=== PATIENT | female | born 1975 | race Caucasian/White ===

== ENCOUNTER → 2016-09-16 | Outpatient (CLI) | payer OTHER ==
[~2016-09-16] MED LIST: ALBU8.5H2 IH; BACL10TA PO; CEPH500C PO; CYCL10TA45 PO; Diazepam PO; FAMO20TA5 PO; FLUO20CA42 PO; ONDA8TAB13 PO; OXYC1TAB12 PO; PRED20TA PO; TRAM50TA2 PO
--- NOTE | 2016-09-16 13:44 | Diagnostic Imaging Report ---
PROCEDURE: US Thyroid. TECHNIQUE: Multiple real-time grayscale images were obtained of the thyroid in various projections. INDICATION: Thyroid enlargement. FINDINGS: The right thyroid lobe is 4.5 x 1.3 x 1.7 cm. The left lobe is 4.1 x 1.3 x 1.8 cm. The thyroid gland is homogeneous with no focal mass. IMPRESSION: Unremarkable exam. Dictated by: Dictated on workstation # [id number]
== END ==
LOC: RAD 13:19
PROVIDERS: ATTEND Nurse Practitioner Family
DX: E01.0 Iodine-deficiency related diffuse (endemic) goiter (principal)
CPT/HCPCS: 76536

== ENCOUNTER → 2017-07-13 | Outpatient (CLI) | payer MEDICAID, OTHER ==
--- NOTE | 2017-07-13 10:23 | Diagnostic Imaging Report ---
INDICATION: Routine screening. COMPARISON: 12/27/2013 and 04/22/2012. TECHNIQUE: Screening digital mammography was performed bilaterally with a Computer Aided Detection (CAD) system. FINDINGS: Both breasts demonstrate moderate parenchymal heterogeneity and increased density, limiting the sensitivity of mammography. The parenchymal pattern is stable. No dominant mass or malignant appearing microcalcifications are seen. The axillae are unremarkable. A benign-appearing nodule in the upper outer right breast is stable. IMPRESSION: No mammographic features suspicious for malignancy are identified. ACR BI-RADS Category 2: Benign findings. Result letter will be mailed to the patient. Note: At least 10% of breast cancer is not imaged by mammography. Dictated by: Dictated on workstation # [id number]
== END ==
LOC: RAD 08:08
PROVIDERS: ATTEND Nurse Practitioner Family
DX: Z12.31 Encounter for screening mammogram for malignant neoplasm of breast (principal)
CPT/HCPCS: 77067

== ENCOUNTER → 2018-10-05 | Outpatient (CLI) | payer MEDICAID ==
--- NOTE | 2018-10-05 10:28 | Diagnostic Imaging Report ---
INDICATION: Screening. TECHNIQUE: The current study was also evaluated with a Computer Aided Detection (CAD) system. 3D Tomographic imaging was also performed. COMPARISON: 07/13/2017, 12/27/2013, and 04/22/2012. FINDINGS: There are scattered fibroglandular densities bilaterally. There is an unchanged well-circumscribed mass in the upper-outer right breast. There is no dominant mass, spiculated lesion, or suspicious calcification identified. The skin, nipples, and axillae are unremarkable. IMPRESSION: Benign findings. ACR BI-RADS Category 2: Benign findings. Result letter will be mailed to the patient. Note: At least 10% of breast cancer is not imaged by mammography. Dictated by: Dictated on workstation # [id number]
== END ==
LOC: RAD 08:36
PROVIDERS: ATTEND Nurse Practitioner
DX: Z12.31 Encounter for screening mammogram for malignant neoplasm of breast (principal)
CPT/HCPCS: 77067

== ENCOUNTER → 2020-04-10 | Outpatient (CLI) | payer MEDICAID, OTHER ==
--- NOTE | 2020-04-10 12:56 | Diagnostic Imaging Report ---
INDICATION: Routine screening. COMPARISON: 10/05/2018 and 07/13/2017. TECHNIQUE: 2D and 3D bilateral screening mammography was performed with CAD. FINDINGS: Both breasts are heterogeneously dense, limiting the sensitivity of mammography. The overall parenchymal pattern appears stable. No spiculated masses or malignant appearing microcalcifications are seen. The axillae are unremarkable. IMPRESSION: No mammographic features suspicious for malignancy are identified. ACR BI-RADS Category 2: Benign findings. Result letter will be mailed to the patient. Note: At least 10% of breast cancer is not imaged by mammography. Dictated by: Dictated on workstation # [id number]
== END ==
LOC: RAD 10:30
PROVIDERS: ATTEND Nurse Practitioner Family
DX: Z12.31 Encounter for screening mammogram for malignant neoplasm of breast (principal)
CPT/HCPCS: 77063; 77067

== ENCOUNTER 2021-09-23 09:49 | Emergency (ER) | payer OTHER ==
[~2021-09-23] VITALS: Ht 160 cm; Wt 113.4 kg
--- NOTE | 2021-09-23 09:55 | ED Chest Pain ---
General Stated Complaint: CHEST PAIN History of Present Illness Date Seen by Provider: Sep 23, 2021 Time Seen by Provider: 09:55 Initial Comments 46-year-old female presents with some generalized Malaise, dizziness, feels hot, some right-sided chest pain. Patient reports that she was just driving to work this morning when it hit. She denies shortness of breath, nausea, vomiting, cough. She reports she just feels like she could pass out. The pain does not radiate. She denies any calf pain. She is currently being treated for high cholesterol otherwise no other medical conditions. Allergies and Home Medications Allergies Coded Allergies: shellfish derived (Unverified Allergy, Severe, SEVERE VOMITING, 07/31/14) PER PT iodine (Unverified Allergy, Intermediate, VOMITING, 07/31/14) PER PT Patient Home Medication List Home Medication List Reviewed: Yes Albuterol (Proair Hfa) 8.5 Gm Hfa.aer.ad, 2 PUFF IH RTQ4HR PRN for SHORTNESS OF BREATH Prescribed by: NIDIA HUNT on 09/06/14 1344 Baclofen (Baclofen) 10 Mg Tablet, 1 EACH PO TID, (Reported) Entered as Reported by: MARY KELLER on 09/06/14 1156 Cephalexin Monohydrate (Cephalexin) 500 Mg Capsule, 1 EACH PO TID Prescribed by: NIDIA HUNT on 09/06/14 1346 Cyclobenzaprine Hcl (Flexeril Tablet) 10 Mg Tablet, 10 MG PO Q8H PRN for SPASMS Prescribed by: NIDIA HUNT on 09/06/14 1346 Famotidine (Pepcid) 20 Mg Tablet, 1 EACH PO BID Prescribed by: NIDIA HUNT on 09/06/14 1344 Fluoxetine Hcl (Prozac) 20 Mg Capsule, 1 EACH PO DAILY, (Reported) Entered as Reported by: ANTONINO CANTU on 07/19/14 1039 Ondansetron (Ondansetron Odt) 8 Mg Tab.rapdis, 8 MG PO Q6H PRN for NAUSEA/VOMITING Prescribed by: NIDIA HUNT on 09/06/14 1344 Oxycodone Hcl/Acetaminophen (Percocet 10/325 (Non-Formulary)) 1 Tab Tablet, 1-2 TAB PO Q6H PRN for PAIN Prescribed by: YOBANI LUNA on 08/07/14 0729 Tramadol Hcl (Tramadol Hcl) 50 Mg Tablet, 50 MG PO PRN PRN for PAIN, (Reported) Entered as Reported by: ANTONINO CANTU on 07/19/14 1039 Tramadol Hcl (Tramadol Hcl) 50 Mg Tablet, 1-2 TAB PO Q4H PRN for PAIN Prescribed by: NIDIA HUNT on 09/06/14 1344 Review of Systems Review of Systems Constitutional: No chills; dizziness; No fever EENTM: No Symptoms Reported; No Blurred Vision, No Nose Pain Respiratory: Denies Cough, Denies Shortness of Air Cardiovascular: Chest Pain (Right chest); Denies Irregular Heart Rate, Denies Palpitations Gastrointestinal: Denies Abdominal Pain, Denies Diarrhea, Denies Nausea, Denies Vomiting Genitourinary: No Symptoms Reported Musculoskeletal: no symptoms reported Skin: no symptoms reported Psychiatric/Neurological: No Symptoms Reported Endocrine: No Symptoms Reported Past Rqbffup-Fmrisn-Wcwbaw Hx Immunizations Up To Date Tetanus Booster (TDap): Less than 5yrs PED Vaccines UTD: Yes Past Medical History Section, Orthopedic, Tubal Ligation TIA Reproductive Disorders: No Scoliosis Depression Eczema, Psoriasis Adverse Reaction/Blood Tranf: No Family Medical History Alcoholism 19 FATHER Drug abuse 19 FATHER FH: cleft palate G8 SISTER FH: scoliosis 19 MOTHER No Pertinent Family Hx Physical Exam Vital Signs Vital Signs - First Documented 09/23/21 09:50 Temp 36.8 Pulse 84 Resp 14 B/P (MAP) 177/75 (109) O2 Delivery Room Air Capillary Refill : Height, Weight, BMI Height: 5'4.00" Weight: 224lbs. 3.0oz. 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 as Tested Skin: Normal Color, Warm/Dry Progress/Results/Core Measures Results/Orders Lab Results Laboratory Tests Test 09/23/21 09:50 09/23/21 10:39 09/23/21 11:51 Range/Units White Blood Count 6.2 4.3-11.0 10^3/uL Red Blood Count 4.27 3.80-5.11 10^6/uL Hemoglobin 13.3 11.5-16.0 g/dL Hematocrit 38 35-52 % Mean Corpuscular Volume 89 80-99 fL Mean Corpuscular Hemoglobin 31 25-34 pg Mean Corpuscular Hemoglobin Concent 35 32-36 g/dL Red Cell Distribution Width 12.1 10.0-14.5 % Platelet Count 258 130-400 10^3/uL Mean Platelet Volume 9.1 9.0-12.2 fL Immature Granulocyte % (Auto) 1 % Neutrophils (%) (Auto) 49 42-75 % Lymphocytes (%) (Auto) 38 12-44 % Monocytes (%) (Auto) 10 0-12 % Eosinophils (%) (Auto) 3 0-10 % Basophils (%) (Auto) 1 0-10 % Neutrophils # (Auto) 3.0 1.8-7.8 10^3/uL Lymphocytes # (Auto) 2.3 1.0-4.0 10^3/uL Monocytes # (Auto) 0.6 0.0-1.0 10^3/uL Eosinophils # (Auto) 0.2 0.0-0.3 10^3/uL Basophils # (Auto) 0.0 0.0-0.1 10^3/uL Immature Granulocyte # (Auto) 0.0 0.0-0.1 10^3/uL Prothrombin Time 11.8 L 12.2-14.7 SEC INR Comment 0.8 0.8-1.4 Activated Partial Thromboplast Time 26 24-35 SEC D-Dimer 0.57 H 0.00-0.49 UG/ML Sodium Level 137 135-145 MMOL/L Potassium Level 4.1 3.6-5.0 MMOL/L Chloride Level 103 98-107 MMOL/L Carbon Dioxide Level 23 21-32 MMOL/L Anion Gap 11 5-14 MMOL/L Blood Urea Nitrogen 10 7-18 MG/DL Creatinine 0.66 0.60-1.30 MG/DL Estimat Glomerular Filtration Rate 111 BUN/Creatinine Ratio 15 Glucose Level 108 H 70-105 MG/DL Calcium Level 9.2 8.5-10.1 MG/DL Corrected Calcium 8.8 8.5-10.1 MG/DL Magnesium Level 2.1 1.6-2.4 MG/DL Total Bilirubin 0.6 0.1-1.0 MG/DL Aspartate Amino Transf (AST/SGOT) 18 5-34 U/L Alanine Aminotransferase (ALT/SGPT) 21 0-55 U/L Alkaline Phosphatase 61 40-136 U/L Myoglobin 21.6 10.0-92.0 NG/ML Troponin I < 0.30 < 0.30 <0.30 NG/ML Pro-B-Type Natriuretic Peptide 25.5 <75.0 PG/ML Total Protein 6.9 6.4-8.2 GM/DL Albumin 4.5 3.2-4.5 GM/DL Lipase 27 8-78 U/L Smear Scan OK My Orders Orders - DOTY,SARABJIT L DO Cbc With Automated Diff (09/23/21 09:56) Magnesium (09/23/21 09:56) Chest 1 View Ap/Pa Only (09/23/21 09:56) Ekg Tracing (09/23/21 09:56) Comprehensive Metabolic Panel (09/23/21 09:56) Myoglobin Serum (09/23/21 09:56) Protime With Inr (09/23/21 09:56) Partial Thromboplastin Time (09/23/21 09:56) Monitor-Rhythm Ecg Trace Only (09/23/21 09:56) Lipid Panel (09/24/21 06:00) Aspirin Chewable Tablet (Baby Aspirin Ch (09/23/21 10:00) Ed Iv/Invasive Line Start (09/23/21 09:56) Lipase (09/23/21 09:56) Fibrin Degradation Products (09/23/21 09:56) Troponin I Fs (09/23/21 09:56) Probnp Fs (09/23/21 09:56) Covid 19 Inhouse Test (09/23/21 09:56) Ns Iv 1000 Ml (Sodium Chloride 0.9%) (09/23/21 09:56) Ondansetron Injection (Zofran Injectio (09/23/21 11:00) Troponin I Fs (09/23/21 11:41) Medications Given in ED Current Medications Medications Dose Ordered Sig/Andrei Route Start Time Stop Time Status Last Admin Dose Admin Aspirin 324 mg ONCE ONCE PO 09/23/21 10:00 09/23/21 10:01 DC 09/23/21 10:06 324 MG Ondansetron HCl 4 mg ONCE ONCE IVP 09/23/21 11:00 09/23/21 11:01 DC 09/23/21 11:02 4 MG Vital Signs/I&O 09/23/21 09:50 Temp 36.8 Pulse 84 Resp 14 B/P (MAP) 177/75 (109) O2 Delivery Room Air Progress Progress Note : Progress Note Patient with negative EKG, negative troponin x2, no significant physical fin dings or lab findings. Patient with nonspecific dizziness and feeling of presyncope. Patient symptoms improved throughout her stay with no further episodes. Difficult to determine etiology of her symptoms. Did recommend if they continue, become more frequent that she should follow-up with her primary care provider for further outpatient evaluation consider cardiology consult. Her COVID test is pending. She may also have another nonspecific early viral syndrome. Patient was stable and discharged Initial ECG Impression Date: Sep 23, 2021 Initial ECG Impression Time: 09:56 Initial ECG Rhythm: Normal Sinus Initial ECG Intervals: Normal Initial ECG Impression: Normal Comment normal ekg Diagnostic Imaging Diagonstic Imaging: Xray Plain Films/CT/US/NM/MRI: chest Comments Date of Exam:09/23/21 CHEST 1 VIEW AP/PA ONLY PATIENT HISTORY: dizziness, rt sided cp . TECHNIQUE: Single frontal view of the chest. COMPARISON: 09/06/2014 FINDINGS: The lung volumes are normal. No focal consolidation is seen. No large pleural effusion or pneumothorax is seen. The cardiomediastinal silhouette is normal in size and contour. No acute osseous abnormality is seen. Thoracic spine fusion hardware is noted. IMPRESSION: No acute pulmonary abnormality seen. Reviewed: Reviewed by Me, Reviewed/Discussed Departure Impression Primary Impression: Dizziness of unknown etiology Disposition: HOME, SELF-CARE Condition: Stable Departure-Patient Inst. Referrals: LOBO TIMMONS APRN (PCP) Primary Care Physician [facility] (Family) Primary Care Physician Patient Instructions: Dizziness, Nonvertigo, (DC) Add. 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 SARABJIT DOTY DO Sep 23, 2021 09:55
[2021-09-23] MEDS ORDERED: NS IV 1000 ML 1,000 ML IV STA (09:56)
[2021-09-23] MEDS ORDERED: ASPIRIN 81 MG CHEW (CHILDREN'S ASA) PO ONE (10:00)
[2021-09-23 10:07] LABS: BASOPHILS % (AUTO) 1 % (0-10); EOSINOPHILS # (AUTO) 0.2 10^3/uL (0.0-0.3); EOSINOPHILS % (AUTO) 3 % (0-10); HEMATOCRIT 38 % (35-52); HEMOGLOBIN 13.3 g/dL (11.5-16.0); LYMPHOCYTES # (AUTO) 2.3 10^3/uL (1.0-4.0); LYMPHOCYTES % (AUTO) 38 % (12-44); MEAN CORPUSCULAR HEMOGLOBIN 31 pg (25-34); MEAN CORPUSCULAR HGB CONC 35 g/dL (32-36); MEAN CORPUSCULAR VOLUME 89 fL (80-99); MEAN PLATELET VOLUME 9.1 fL (9.0-12.2); MONOCYTES # (AUTO) 0.6 10^3/uL (0.0-1.0); MONOCYTES % (AUTO) 10 % (0-12); NEUTROPHILS % (AUTO) 49 % (42-75); PLATELET COUNT 258 10^3/uL (130-400); WHITE BLOOD COUNT 6.2 10^3/uL (4.3-11.0)
[2021-09-23 10:24] LABS: SMEAR SCAN COMMENT OK
--- NOTE | 2021-09-23 10:33 | Diagnostic Imaging Report ---
PATIENT HISTORY: dizziness, rt sided cp . TECHNIQUE: Single frontal view of the chest. COMPARISON: 09/06/2014 FINDINGS: The lung volumes are normal. No focal consolidation is seen. No large pleural effusion or pneumothorax is seen. The cardiomediastinal silhouette is normal in size and contour. No acute osseous abnormality is seen. Thoracic spine fusion hardware is noted. IMPRESSION: No acute pulmonary abnormality seen. Dictated by: Dictated on workstation # [id number]
[2021-09-23 10:38] LABS: INR 0.8 (0.8-1.4); PROTHROMBIN TIME PATIENT 11.8 SEC (12.2-14.7)
[2021-09-23 10:40] LABS: BILIRUBIN,TOTAL 0.6 MG/DL (0.1-1.0); CALCIUM 9.2 MG/DL (8.5-10.1); CREATININE SERUM 0.66 MG/DL (0.60-1.30); MAGNESIUM 2.1 MG/DL (1.6-2.4); POTASSIUM 4.1 MMOL/L (3.6-5.0)
[2021-09-23 10:41] LABS: ALBUMIN 4.5 GM/DL (3.2-4.5); TOTAL PROTEIN 6.9 GM/DL (6.4-8.2)
[2021-09-23] MEDS ORDERED: ONDANSETRON 4 MG/2 ML (SDV) Z0FRAN IVP ONE (11:00)
[2021-09-23 12:55] VITALS: BP 157/84
== END 2021-09-23 12:55 | disposition home or self-care (01) ==
LOC: EDUNIT# 09:49 → ER FS 09:51
DX: R42 Dizziness and giddiness (principal); E78.5 Hyperlipidemia, unspecified; Z79.899 Other long term (current) drug therapy; Z20.822 Contact with and (suspected) exposure to COVID-19
CPT/HCPCS: 36415; 71045; 80053; 83690; 83735; 83874; 83880; 84484; 85025; 85379; 85610; 85730; 87636; 93005; 93041

== ENCOUNTER → 2021-11-20 | Outpatient (CLI) | payer OTHER | LOC: CARD 13:00 | PROVIDERS: ATTEND Internal Medicine Cardiovascular Disease | DX: I51.7 Cardiomegaly (principal) | CPT/HCPCS: 93306 ==

== ENCOUNTER 2022-03-08 19:21 | Emergency (ER) | payer OTHER ==
[~2022-03-08] VITALS: Ht 162.5 cm; Wt 118.0 kg
[2022-03-08] MEDS ORDERED: morphine INJ 10 MG/ML 1ML (SYR OR VIAL) IVP STA (19:56)
[2022-03-08] MEDS ORDERED: ONDANSETRON 4 MG/2 ML (SDV) Z0FRAN IVP ONE (20:00)
[2022-03-08 20:09] LABS: BASOPHILS % (AUTO) 0 % (0-10); EOSINOPHILS # (AUTO) 0.2 10^3/uL (0.0-0.3); EOSINOPHILS % (AUTO) 2 % (0-10); HEMATOCRIT 40 % (35-52); HEMOGLOBIN 13.4 g/dL (11.5-16.0); LYMPHOCYTES % (AUTO) 42 % (12-44); MEAN CORPUSCULAR HEMOGLOBIN 31 pg (25-34); MEAN CORPUSCULAR HGB CONC 34 g/dL (32-36); MEAN CORPUSCULAR VOLUME 91 fL (80-99); MEAN PLATELET VOLUME 9.4 fL (9.0-12.2); MONOCYTES # (AUTO) 0.7 10^3/uL (0.0-1.0); MONOCYTES % (AUTO) 8 % (0-12); NEUTROPHILS # (AUTO) 4.5 10^3/uL (1.8-7.8); NEUTROPHILS % (AUTO) 47 % (42-75); PLATELET COUNT 282 10^3/uL (130-400); WHITE BLOOD COUNT 9.6 10^3/uL (4.3-11.0)
[2022-03-08 20:12] LABS: BILIRUBIN,URINE NEGATIVE (NEGATIVE); CLARITY,URINE CLEAR; COLOR,URINE YELLOW; GLUCOSE, URINE (UA) NEGATIVE (NEGATIVE); KETONES,URINE NEGATIVE (NEGATIVE); LEUKOCYTE ESTERASE ,URINE NEGATIVE (NEGATIVE); NITRITE,URINE NEGATIVE (NEGATIVE); PROTEIN,URINE NEGATIVE (NEGATIVE)
--- NOTE | 2022-03-08 20:13 | ED Abdominal Pain ---
General Chief Complaint: Abdominal/GI Problems Stated Complaint: RIGHT SIDE ABD PAIN Nursing Triage Note: PT STATES NAUSEA AND RIGHT SIDE ABD PAIN RADIATING TO HER RIGHT SHOULDER. STATES FLU LIKE SYMPTOMS ON THURSDAY BUT THOSE SYMPTOMS HAVE RESOLVED. Source of Information: Patient Exam Limitations: No Limitations (ERWIN ZAVALA APRN) History of Present Illness Date Seen by Provider: Mar 08, 2022 Time Seen by Provider: 19:35 Initial Comments Patient is a 46-year-old female who presents to the emergency department with nausea and right upper quadrant abdominal pain that radiates to her right shoulder. She states the symptoms began earlier today. She states they worsen when she eats. States she had some flulike symptoms a few days ago but this is since resolved. She has not had any vomiting. Denies any diarrhea. Denies any chest pain. No urinary symptoms. (ERWIN ZAVALA APRN) Allergies and Home Medications Allergies Coded Allergies: shellfish derived (Unverified Allergy, Severe, SEVERE VOMITING, 07/31/14) PER PT iodine (Unverified Allergy, Intermediate, VOMITING, 07/31/14) PER PT Patient Home Medication List Home Medication List Reviewed: Yes (ERWIN ZAVALA APRN) Albuterol (Proair Hfa) 8.5 Gm Hfa.aer.ad, 2 PUFF IH RTQ4HR PRN for SHORTNESS OF BREATH Prescribed by: NIDIA HUNT on 09/06/14 1344 Baclofen (Baclofen) 10 Mg Tablet, 1 EACH PO TID, (Reported) Entered as Reported by: MARY KELLER on 09/06/14 1156 Cephalexin Monohydrate (Cephalexin) 500 Mg Capsule, 1 EACH PO TID Prescribed by: NIDIA HUNT on 09/06/14 1346 Cyclobenzaprine Hcl (Flexeril Tablet) 10 Mg Tablet, 10 MG PO Q8H PRN for SPASMS Prescribed by: NIDIA HUNT on 09/06/14 1346 Famotidine (Pepcid) 20 Mg Tablet, 1 EACH PO BID Prescribed by: NIDIA HUNT on 09/06/14 1344 Fluoxetine Hcl (Prozac) 20 Mg Capsule, 1 EACH PO DAILY, (Reported) Entered as Reported by: ANTONINO CANTU on 07/19/14 1039 Hydrocodone Bit/Acetaminophen (HYDROcodone/APAP 5 MG/325 MG TAB) 1 Tab Tab, 1 TAB PO Q6H PRN for PAIN-MODERATE (5-7) Prescribed by: Erwin Zavala on 03/08/222053 Last Action: New Order Ondansetron (Ondansetron Odt) 8 Mg Tab.rapdis, 8 MG PO Q6H PRN for NAUSEA/VOMITING Prescribed by: NIDIA HUNT on 09/06/14 1344 Ondansetron (Ondansetron Odt) 4 Mg Tab.rapdis, 4 MG SL Q4H PRN for NAUSEA/VOMITING Prescribed by: Erwin Zavala on 03/08/222053 Last Action: New Order Oxycodone Hcl/Acetaminophen (Percocet 10/325 (Non-Formulary)) 1 Tab Tablet, 1-2 TAB PO Q6H PRN for PAIN Prescribed by: YOBANI LUNA on 08/07/14 0729 Tramadol Hcl (Tramadol Hcl) 50 Mg Tablet, 50 MG PO PRN PRN for PAIN, (Reported) Entered as Reported by: ANTONINO CANTU on 07/19/14 1039 Tramadol Hcl (Tramadol Hcl) 50 Mg Tablet, 1-2 TAB PO Q4H PRN for PAIN Prescribed by: NIDIA HUNT on 09/06/14 1344 Review of Systems Review of Systems Constitutional: no symptoms reported EENTM: No Symptoms Reported Respiratory: No Symptoms Reported Cardiovascular: No Symptoms Reported Gastrointestinal: See HPI, Abdominal Pain, Nausea Genitourinary: No Symptoms Reported Musculoskeletal: no symptoms reported Skin: no symptoms reported Psychiatric/Neurological: No Symptoms Reported Endocrine: No Symptoms Reported (ERWIN ZAVALA APRN) Past Otmxnwt-Ylyoif-Pjhnoq Hx Patient Social History Tobacco Use?: Yes Tobacco type used: Cigarettes Smoking Status: Current Everyday Smoker Substance use?: No Alcohol Use?: No Pt feels they are or have been: No (ERWIN ZAVALA APRN) Immunizations Up To Date Tetanus Booster (TDap): Less than 5yrs PED Vaccines UTD: Yes Influenza Vaccine Up-to-Date: Yes; Up-to-Date (ERWIN ZAVALA APRN) Past Medical History Section, Orthopedic, Tubal Ligation TIA Reproductive Disorders: No Scoliosis Depression Eczema, Psoriasis Adverse Reaction/Blood Tranf: No (ERWIN ZAVALA APRN) Family Medical History Alcoholism 19 FATHER Drug abuse 19 FATHER FH: cleft palate G8 SISTER FH: scoliosis 19 MOTHER No Pertinent Family Hx (ERWIN ZAVALA APRN) Physical Exam Vital Signs Vital Signs - First Documented 03/08/22 03/08/22 19:32 21:09 Temp 37.1 Pulse 89 Resp 16 B/P (MAP) 150/96 (114) Pulse Ox 99 O2 Delivery Room Air (FRANCISCO KAY MD) Vital Signs Capillary Refill : (ERWIN ZAVALA APRN) Height/Weight/BMI Height: 5'4.00" Weight: 224lbs. 3.0oz. 101.414473zb; 44.00 BMI Method:Stated General Appearance: WD/WN, no apparent distress HEENT: PERRL/EOMI, normal ENT inspection, TMs normal, pharynx normal Neck: non-tender, full range of motion Respiratory: chest non-tender, lungs clear, normal breath sounds, no respiratory distress, no accessory muscle use Cardiovascular: regular rate, rhythm Gastrointestinal: normal bowel sounds, non tender, soft Neurologic/Psychiatric: no motor/sensory deficits, alert, normal mood/affect, oriented x 3 Skin: normal color, warm/dry (ERWIN ZAVALA APRN) Progress/Results/Core Measures Results/Orders Lab Results Laboratory Tests Test 03/08/22 19:45 03/08/22 19:58 Range/Units White Blood Count 9.6 4.3-11.0 10^3/uL Red Blood Count 4.35 3.80-5.11 10^6/uL Hemoglobin 13.4 11.5-16.0 g/dL Hematocrit 40 35-52 % Mean Corpuscular Volume 91 80-99 fL Mean Corpuscular Hemoglobin 31 25-34 pg Mean Corpuscular Hemoglobin Concent 34 32-36 g/dL Red Cell Distribution Width 12.2 10.0-14.5 % Platelet Count 282 130-400 10^3/uL Mean Platelet Volume 9.4 9.0-12.2 fL Immature Granulocyte % (Auto) 1 % Neutrophils (%) (Auto) 47 42-75 % Lymphocytes (%) (Auto) 42 12-44 % Monocytes (%) (Auto) 8 0-12 % Eosinophils (%) (Auto) 2 0-10 % Basophils (%) (Auto) 0 0-10 % Neutrophils # (Auto) 4.5 1.8-7.8 10^3/uL Lymphocytes # (Auto) 4.0 1.0-4.0 10^3/uL Monocytes # (Auto) 0.7 0.0-1.0 10^3/uL Eosinophils # (Auto) 0.2 0.0-0.3 10^3/uL Basophils # (Auto) 0.0 0.0-0.1 10^3/uL Immature Granulocyte # (Auto) 0.1 0.0-0.1 10^3/uL Sodium Level 139 135-145 MMOL/L Potassium Level 3.8 3.6-5.0 MMOL/L Chloride Level 107 98-107 MMOL/L Carbon Dioxide Level 20 L 21-32 MMOL/L Anion Gap 12 5-14 MMOL/L Blood Urea Nitrogen 17 7-18 MG/DL Creatinine 0.83 0.60-1.30 MG/DL Estimat Glomerular Filtration Rate 89 BUN/Creatinine Ratio 20 Glucose Level 125 H 70-105 MG/DL Calcium Level 9.6 8.5-10.1 MG/DL Corrected Calcium 9.5 8.5-10.1 MG/DL Total Bilirubin 0.4 0.1-1.0 MG/DL Aspartate Amino Transf (AST/SGOT) 13 5-34 U/L Alanine Aminotransferase (ALT/SGPT) 24 0-55 U/L Alkaline Phosphatase 60 40-136 U/L Total Protein 6.9 6.4-8.2 GM/DL Albumin 4.1 3.2-4.5 GM/DL Lipase 43 8-78 U/L Urine Color YELLOW Urine Clarity CLEAR Urine pH 6.0 5-9 Urine Specific [place] 1.025 H 1.016-1.022 Urine Protein NEGATIVE NEGATIVE Urine Glucose (UA) NEGATIVE NEGATIVE Urine Ketones NEGATIVE NEGATIVE Urine Nitrite NEGATIVE NEGATIVE Urine Bilirubin NEGATIVE NEGATIVE Urine Urobilinogen 0.2 < = 1.0 MG/DL Urine Leukocyte Esterase NEGATIVE NEGATIVE Urine RBC (Auto) 1+ H NEGATIVE Urine RBC RARE /HPF Urine WBC 0-2 /HPF Urine Squamous Epithelial Cells 0-2 /HPF Urine Renal Epithelial Cells NONE /HPF Urine Crystals NONE /LPF Urine Bacteria MODERATE H /HPF Urine Casts NONE /LPF Urine Mucus NEGATIVE /LPF Urine Culture Indicated NO (FRANCISCO KAY MD) My Orders Orders - FRANCISCO KAY MD Ua Culture If Indicated (03/08/22 19:50) (FRANCISCO KAY MD) Vital Signs/I&O 03/08/22 03/08/22 19:32 21:09 Temp 37.1 Pulse 89 Resp 16 B/P (MAP) 150/96 (114) 138/82 Pulse Ox 99 98 O2 Delivery Room Air (FRANCISCO KAY MD) Blood Pressure Mean: 114 Progress Progress Note : Progress Note Patient is nontoxic and well-hydrated on exam. Abdominal exam notable for right upper quadrant tenderness to palpation. No tenderness to palpation about the right shoulder. No pain with movement of the right shoulder. Laboratory evaluation largely unremarkable. Urinalysis unremarkable. CT of abdomen pelvis with contrast reveals no acute abnormality. Patient's symptoms are very consistent with biliary colic. No evidence of cholangitis or common bile duct obstruction at this time. Discussed supportive care and anticipatory guidance. Follow-up with PCP and/or general surgery. Return precautions for urgent symptomology discussed. Patient verbalized understanding. (ERWIN ZAVALA APRN) Departure Impression Primary Impression: Colicky RUQ abdominal pain Disposition: HOME, SELF-CARE Condition: Stable Departure-Patient Inst. Decision time for Depature: 20:45 (ERWIN ZAVALA APRN) Referrals: [facility] (PCP/Family) Primary Care Physician JANICE THOMPSON BRETT D DO KIDO, TAKAAKI MD Patient Instructions: Abdominal Pain, Adult ED Add. Discharge Instructions: Given your symptoms, it is likely you may have some biliary colic caused by an issue with your gallbladder. Follow-up with your PCP as well as a general surgeon. Three local general surgeons have been listed along with their contact information. Use the pain medicine and nausea medicine as needed. Return to the emergency department if you begin running a high fever along with significantly worsening pain or if the pain becomes intractable despite the medicine. All discharge instructions reviewed with patient and/or family. Voiced understanding. Scripts Ondansetron (Ondansetron Odt) 4 Mg Tab.rapdis 4 MG SL Q4H PRN for NAUSEA/VOMITING, #20 TAB 0 Refills Prov: ERWIN ZAVALA APRN 03/08/22 Hydrocodone Bit/Acetaminophen (HYDROcodone/APAP 5 MG/325 MG TAB) 1 Tab Tab 1 TAB PO Q6H PRN for PAIN-MODERATE (5-7), #18 TAB 0 Refills Prov: ERWIN ZAVALA APRN 03/08/22 ATTENDING PHYSICIAN NOTE: I was physically present as attending physician in the emergency department during the care of this patient, but I was not directly involved in the decision making or delivery of care for this patient. (FRANCISCO KAY MD) ERWIN ZAVALA APRN Mar 08, 2022 20:13 FRANCISCO KAY MD Mar 10, 2022 05:37
[2022-03-08 20:18] LABS: BACTERIA,URINE MODERATE /HPF; RBC,URINE RARE /HPF; SQUAMOUS EPITHELIAL CELL,UR 0-2 /HPF; WBC,URINE 0-2 /HPF
[2022-03-08 20:25] LABS: CREATININE SERUM 0.83 MG/DL (0.60-1.30); POTASSIUM 3.8 MMOL/L (3.6-5.0)
[2022-03-08 20:26] LABS: ALBUMIN 4.1 GM/DL (3.2-4.5); BILIRUBIN,TOTAL 0.4 MG/DL (0.1-1.0); CALCIUM 9.6 MG/DL (8.5-10.1); TOTAL PROTEIN 6.9 GM/DL (6.4-8.2)
--- NOTE | 2022-03-08 20:30 | Diagnostic Imaging Report ---
PROCEDURE: CT abdomen and pelvis without contrast. TECHNIQUE: Multiple contiguous axial images were obtained through the abdomen and pelvis without the use of intravenous contrast. Auto Exposure Controls were utilized during the CT exam to meet ALARA standards for radiation dose reduction. INDICATION: Right upper quadrant abdominal pain. COMPARISON: None available. FINDINGS: The visualized lung bases are clear. Diffusely decreased density of the liver, consistent with fatty infiltration. Focal fatty sparing is identified adjacent to the gallbladder fossa and falciform ligament. The liver is enlarged measuring up to 21 cm in craniocaudal dimension. The spleen is mildly enlarged measuring 14 cm in craniocaudal dimension. The adrenal glands are unremarkable. The pancreas is unremarkable. The gallbladder is unremarkable. The bilateral kidneys and ureters are unremarkable. Mild vascular calcifications without aneurysmal dilatation of the abdominal aorta. The appendix is unremarkable. The urinary bladder is predominantly decompressed, therefore not well evaluated. The uterus and adnexal structures are unremarkable for age. Mild colonic diverticulosis without CT evidence of diverticulitis. No bowel obstruction or pneumatosis. No significant adenopathy, free air or free fluid within the abdomen or pelvis. Thomson left curvature of the thoracolumbar spine. Extensive postsurgical changes are identified throughout the thoracolumbosacral spine. No fractured hardware. Screws are identified transfixing the bilateral sacroiliac joints. No acute osseous abnormality. IMPRESSION: Hepatosplenomegaly with associated fatty infiltration of the liver. Extensive postsurgical changes throughout the visualized spine without hardware complication or acute osseous abnormality. Mild colonic diverticulosis without CT evidence of diverticulitis. Dictated by: Dictated on workstation # [id number]
[2022-03-08] MEDS ORDERED: ACHD5005 PO (20:53)
[2022-03-08] MEDS ORDERED: ONDA4TAB11 SL (20:54)
[2022-03-08] MEDS ORDERED: PROCHLORPERAZINE 10 MG/2ML INJ (COMPAZINE) IV ONE (21:00)
[2022-03-08] MEDS ORDERED: KETOROLAC 15 MG/ML VIAL IVP ONE (21:00)
[2022-03-08 21:09] VITALS: BP 138/82
== END 2022-03-08 21:09 | disposition home or self-care (01) ==
LOC: EDUNIT# 19:21 → ER 19:23
DX: R10.84 Generalized abdominal pain (principal); F17.210 Nicotine dependence, cigarettes, uncomplicated
CPT/HCPCS: 36415; 74176; 80053; 81000; 83690; 85025